=== PATIENT | female | born 2005 | race Caucasian/White ===

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

== ENCOUNTER 2025-08-30 23:03 | Emergency (ER) | payer OTHER, SELFPAY ==
[2025-08-30 23:04] VITALS: BP 181/89; PULSE 93; RESP 16; TEMP 36.1; O2SAT 100; BMI 53.1
[2025-08-30 23:27] VITALS: BP 141/97; PULSE 87; RESP 18; TEMP 36.9; O2SAT 99
--- NOTE | 2025-08-30 23:40 | ED.VIS.FEGU ---
HPI HPI - Female History of Present Illness Chief Complaint: Complaint Informant: patient Narrative Narrative: Patient is a 20-year-old female presenting with dysuria and concern for urinary tract infection. She states yesterday she had a urinary frequency and does not she is very well-hydrated. Today progressed into significant frequency with associated dysuria and pink tent to her urine with wiping. She denies any abnormal vaginal discharge or bleeding. Denies any concern for pregnancies. Denies any fever or chills but does note that she has some discomfort in her lower abdomen and lower back. 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 She wrote these numbers down for me to review. She has had 1 UTI in the past couple years ago. Denies any concern for sexually transmitted infections. No other complaints or concerns at this time. [facility] Medical History Anterior tibialis tendinitis of right leg Family history of deep venous thrombosis Depression Obesity Hypertension Asthma Migraines Home Medications ?Medication ?Instructions ?Recorded ?Last Taken ?Type albuterol sulfate 90 mcg/actuation 2 puff inhalation Q4H PRN PRN 12/29/15 Unknown History aerosol inhaler (ProAir HFA) Shortness Of Breath ergocalciferol (vitamin D2) 1,250 4,000 unit PO DAILY 12/29/15 Unknown History mcg (50,000 unit) capsule (Vitamin D2) montelukast 5 mg chewable tablet 5 mg PO DAILY 12/29/15 Unknown History (Singulair) vitamin B complex 1 ea PO DAILY 12/29/15 Unknown History bupropion HCl 100 mg tablet 300 mg PO DAILY 07/19/18 Unknown History fluticasone propionate 100 1 inh inhalation BID 10/25/21 Unknown History mcg/actuation blister powder for inhalation (Flovent Diskus) fluoxetine 10 mg capsule 10 mg PO DAILY 12/25/23 Unknown History trazodone 50 mg tablet 50 mg PO DAILY 12/25/23 Unknown History ferrous sulfate 325 mg (65 mg 325 mg PO QDAY 05/04/24 Unknown History iron) tablet phentermine 37.5 mg tablet 37.5 mg PO QDAY 05/04/24 Unknown History norethindrone (contraceptive) 0.35 0.35 mg PO QDAY #84 tabs 02/24/25 Unknown Rx mg tablet (Dolores) fluconazole 150 mg tablet 150 mg PO DAILY 1 dose #1 TAB 08/31/25 Unknown Rx phenazopyridine 200 mg tablet 200 mg PO TID PRN pain with 08/31/25 Unknown Rx (Pyridium) urination #6 tabs sulfamethoxazole 800 1 tab PO BID 5 days #10 tabs 08/31/25 Unknown Rx mg-trimethoprim 160 mg tablet (Bactrim DS) Allergy/AdvReac Type Severity Reaction Status Date / Time No Known Allergies Allergy Verified 08/30/25 23:04 Family History Grandfather Heart disease Myocardial infarction Grandmother Diabetes Thyroid disorder Father Hypertension Obesity Surgical History History of tonsillectomy and adenoidectomy 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 Smoking Status: Never smoker alcohol intake: never substance use type: does not use well-balanced diet: about half the time what type of physical activity do you participate in: walking frequency: 1-2 times per week ROS ROS ED Constitutional Constitutional ED: Denies chills or fever(s) Respiratory/Chest Respiratory/Chest: Denies cough Gastrointestinal Gastrointestinal: Reports abdominal pain; Denies nausea or vomiting Genitourinary Genitourinary ED: Reports dysuria, hematuria and urinary frequency Neurologic Neurologic: Denies weakness Psychiatric Psychiatric: Denies anxiety or depression EXAM Physical Exam Const Vital Signs: 08/30/25 23:04 08/30/25 23:27 08/31/25 00:05 Temperature 97 F L 98.5 F 98.9 F Temperature Source Oral Axillary Oral Pulse Rate 93 87 78 Respiratory Rate 16 18 16 Blood Pressure 181/89 H 141/97 H 148/80 H Blood Pressure Mean 119 111 102 Pulse Ox 100 99 100 Oxygen Delivery Method Room Air Room Air 08/31/25 00:57 Temperature 98 F Temperature Source Pulse Rate 89 Respiratory Rate 16 Blood Pressure 155/95 H Blood Pressure Mean 115 Pulse Ox 98 Oxygen Delivery Method Positive well nourished and well developed General Appearance ED: well developed and NAD HEENT Reports moist mucous membranes Neck supple Chest Wall inspection of chest normal and palpation of chest normal Resp normal respiratory effort and clear to auscultation bilaterally Cardio regular rate and regular rhythm GI normal to inspection, nondistended, normoactive bowel sounds, soft to palpation and non-tender Back/Spine no CVA tenderness Neuro oriented x3 Sensorium / Orientation: alert Motor Exam: Negative for general weakness Psych mental status grossly normal Skin no rashes or lesions noted MDM MDM MDM Narrative Medical decision making narrative: Patient evaluated for 2 days of worsening urinary symptoms include dysuria, hematuria and frequency. She is nontoxic-appearing. Denies any vaginal symptoms. Differential includes not limited to urinary tract infection, pyelonephritis, , interstitial cystitis. She did not report any significant flank pain and lower suspicion for renal colic/kidney stone as a cause of her symptoms. Denies any concern for sexually transmitted infections or potential exposures. Urinalysis does show 1+ bacteria, 10-25 white blood cells and 10-25 red blood cells with negative nitrates. Will send for culture and treat as hemorrhagic cystitis. Patient is given first dose of Pyridium and Bactrim in the emergency room. Was given return precautions. Is given a prescription for Diflucan to take when she finishes antibiotics as she states she has had yeast infections in the past after taking antibiotics. Discharged home in stable condition. Lab Data Attestation: I reviewed the patient's lab results. Labs: Laboratory Results - last 24 hr 08/30/25 23:31 Urine Color Yellow Urine Clarity Sl. Cloudy Urine pH 6.0 Ur Specific [place] 1.020 Urine Protein 30 H Urine Glucose (UA) Normal Urine Ketones Negative Urine Occult Blood 150 H Urine Nitrite Negative Urine Bilirubin Negative Urine Urobilinogen Normal Ur Leukocyte Esterase 25 H Urine RBC 10-25 SEEN Urine WBC 10-25 SEEN Ur Squamous Epith Cells 0-5 SEEN Urine Bacteria 1+ Urine Mucus 1+ Urine Test Negative Discharge Plan Triage Chief Complaint: Complaint ED Provider: Nichelle Holland Dx/Rx/DC Orders Clinical Impression: UTI (urinary tract infection) Instructions: ED UTIs Women Prescriptions: New fluconazole 150 mg tablet 150 mg PO DAILY Qty: 1 0RF Rx Instructions: administer after completing antibiotics for yeast infection symptoms phenazopyridine [Pyridium] 200 mg tablet 200 mg PO TID PRN (Reason: pain with urination) Qty: 6 0RF sulfamethoxazole-trimethoprim [Bactrim DS] 800-160 mg tablet 1 tab PO BID 5 Days Qty: 10 0RF No Action Flovent Diskus 100 mcg/actuation blister with device 1 inh inhalation BID fluoxetine 10 mg capsule 10 mg PO DAILY trazodone 50 mg tablet 50 mg PO DAILY phentermine 37.5 mg tablet 37.5 mg PO QDAY ferrous sulfate 325 mg (65 mg iron) tablet 325 mg PO QDAY montelukast [Singulair] 5 MG tablet,chewable 5 mg PO DAILY ergocalciferol (vitamin D2) [Vitamin D2] 50,000 UNIT capsule 4,000 unit PO DAILY albuterol sulfate [ProAir HFA] 1 PUFF inhaler 2 puff inhalation Q4H PRN PRN (Reason: Shortness Of Breath) vitamin B complex 1 EACH capsule 1 ea PO DAILY bupropion HCl 100 MG tablet 300 mg PO DAILY norethindrone (contraceptive) [Dolores] 0.35 mg tablet 0.35 mg PO QDAY Qty: 84 0RF Rx Instructions: start day 1 of menstrual cycle Primary Care Provider: Ayaz Douglas Referrals: Ayaz Douglas MD [Primary Care Provider, Family Practice] Print Language: Kazakh Disposition Disposition: Home, Self Care Discharge Date/Time: 08/31/25 01:09
[2025-08-30 23:56] LABS: Color, Urine Yellow (Yellow); Glucose, Dipstick Normal (Normal); Ketone-Dipstick Negative (Negative); Leukocyte Esterase-Dipstick 25 /ul (Negative); Nitrite-Dipstick Negative (Negative); Occult Blood-Urine 150 /ul (Negative); Protein-Dipstick 30 mg/dl (Negative); Specific Gravity, Urine 1.020 (1.002-1.030); Urine Bilirubin Dipstick Negative (Negative)
[2025-08-31 00:05] VITALS: BP 148/80; PULSE 78; RESP 16; TEMP 37.2; O2SAT 100
[2025-08-31 00:13] LABS: Mucous, Urine 1+ /hpf (<or=2+); Red Blood Cells-Urine 10-25 SEEN /hpf (0-5); Squamous Epithelial Cells - UA 0-5 SEEN /hpf (5-10)
[2025-08-31 00:14] LABS: Internal QC Validated? YES +Cl - CLEAR BKGD; Pregnancy, Urine Negative Negative; Record Kit Lot#,Urine Preg 0000964736
[2025-08-31] MEDS: Smz/Tmp Ds Tablet 1 TABLET PO (00:48)
[2025-08-31 00:57] VITALS: BP 155/95; PULSE 89; RESP 16; TEMP 36.6; O2SAT 98
== END 2025-08-31 01:09 | disposition home or self-care (01) ==
PROVIDERS: Emergency Provider Emergency Medicine; PCP Family Medicine; Visit Provider Emergency Medicine
DX: N39.0 Urinary tract infection, site not specified (principal)
CPT/HCPCS: 81001; 81025; 87086; 87088; 99282

== ENCOUNTER → 2025-10-07 | Outpatient (CLI) | payer OTHER, SELFPAY ==
[2025-10-07 16:31] LABS: Hematocrit 41.0 % (37-47); Hemoglobin 14.4 g/dL (12.0-15.0); Mean Corp Hgb Conc 35.1 g/dL (32-36); Mean Corpuscular Volume 89.3 fL (81-99); Mean Platelet Vol. 9.7 fl (6.2-12.0); Platelet Count 328 K/mm3 (150-450); RBC Distribution Width CV 12.7 % (11.6-14.6); RBC Distribution Width SD 41.5 fl (35.1-43.9); Red Blood Count 4.59 M/mm3 (4.2-5.4); White Blood Count 8.5 K/mm3 (4.4-11.0)
[2025-10-07 17:08] LABS: AST(SGOT) 17 U/L (<=31); Alanine Aminotransfer ALT/SGPT 29 U/L (<=34); Albumin, Serum 4.6 g/dL (3.5-5.0); Alkaline Phosphatase 65 U/L (35-104); Anion Gap 11 (5-15); BUN 15 mg/dL (4-19); BUN/Creat Ratio 21.1 RATIO (10-20); Calcium,Total 9.4 mg/dL (7.6-11.0); Carbon Dioxide 23.7 mmol/L (21.0-32.0); Chloride 106 mmol/L (98-108); Globulin 2.5 g/dL (2.2-4.2); Glucose 99 mg/dL (70-99); Potassium 4.2 mmol/L (3.3-5.1)
== END | disposition home or self-care (01) ==
LOC: LAB 16:12
PROVIDERS: PCP Family Medicine; Visit Provider Family Medicine
DX: I10 Essential (primary) hypertension (principal); E66.01 Morbid (severe) obesity due to excess calories
CPT/HCPCS: 80053; 84443; 85027